=== PATIENT | female | born 1980 | race Hispanic/Latino ===

== ENCOUNTER 2018-01-25 22:37 | Emergency (ER) | payer SELFPAY ==
--- NOTE | 2018-01-26 00:30 | RAD ---
LEFT KNEE FOUR VIEWS: INDICATIONS: Mechanical fall with left knee pain. COMPARISON: None. FINDINGS: There is soft tissue swelling involving the anterior aspect of the left knee. No definite joint caps ular distention is evident. No acute fracture os noted. IMPRESSION: No acute fracture. Soft tissue swelling. POS: [facility]
== END 2018-01-25 23:56 | disposition home or self-care (01) ==
LOC: ERS 22:37
DX: S80.02XA Contusion of left knee, initial encounter (principal); W18.2XXA Fall in (into) shower or empty bathtub, initial encounter